=== PATIENT | male | born 1990 | race Caucasian/White ===

== ENCOUNTER 2019-03-04 16:59 | Emergency (ER) | payer MEDICAID, SELFPAY ==
[2019-03-04 17:01] VITALS: BP 162/95; PULSE 120; RESP 12; TEMP 36.8; O2SAT 95; BMI 28.1
[2019-03-04 17:07] VITALS: O2SAT 96
[2019-03-04 17:11] LABS: Bedside Glucose 183 mg/dL (70-110)
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
[2019-03-04] MEDS: Naloxone 2 MG/2 ML Syringe IV (17:21)
[2019-03-04] MEDS: 0.9% Normal Saline 1,000 ML 1000 ML IV (17:26)
[2019-03-04] MEDS: Ondansetron 4 MG/2 ML Vial IV (17:29)
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
[2019-03-04 17:31] LABS: Absolute Lymphocyte Count 3.75 X10^3/ul (0.83-4.51); Absolute Neutrophil Count 4.4 X10^3/uL (2.0-7.7); Basophil# 0.06 X10^3/uL; Basophil% 0.6 % (0-1); Eosinophil# 0.68 X10^3/uL; Eosinophils% 6.8 % (0-5); Hematocrit 41.8 % (40-54); Hemoglobin 13.8 g/dl (13.0-16.5); Lymphocyte # 3.75 X10^3/ul (4.0); Lymphocyte % 37.4 % (19-41); Mean Corpuscular Hgb 27.4 pg (27.0-32.0); Mean Corpuscular Volume 83.1 fL (80-94); Mean Platelet Vol. 9.2 fl (6.2-12.0); Monocyte# 1.05 X10^3/uL; Monocyte% 10.5 % (0-10); Neutrophil # 4.44 X10^3/uL (2.7-7.7); Neutrophil % 44.3 % (47-70); Platelet Count 327 K/mm3 (150-450); RBC Distribution Width CV 12.9 % (11.6-14.6); RBC Distribution Width SD 39.1 fl (35.1-43.9); Red Blood Count 5.03 M/mm3 (4.6-6.2)
--- NOTE | 2019-03-04 17:43 | ED.RN ---
AFTER NARCAN PT'S PUPILS ARE REACTIVE TO LIGHT BILAT AND 9MM.
[2019-03-04 17:45] LABS: POSITIVE COUNT NO; POSITIVE DIFFERENTIAL NO; POSITIVE MORPHOLOGY NO
[2019-03-04 17:52] LABS: Anion Gap 3 (5-15); BUN 13 mg/dL (7-18); BUN/Creat Ratio 10.6 RATIO (10-20); Calcium,Total 8.2 mg/dL (8.5-10.1); Chloride 107 mmol/L (98-107); Creatinine, Serum 1.23 mg/dL (0.70-1.30); EST Glomerular Filtration Rate 74 mL/min (>60); Est Glom Filt Rate - Afr Amer 89 mL/min (>60); Glucose 186 mg/dL (74-106); Potassium 3.4 mmol/L (3.5-5.1); Sodium Level 140 mmol/L (136-145)
[2019-03-04 18:00] VITALS: BP 140/77; PULSE 95; RESP 16; O2SAT 100
[2019-03-04 19:08] VITALS: BP 126/70; PULSE 100; RESP 14; O2SAT 98
[2019-03-04 19:51] VITALS: BP 125/67; PULSE 92; RESP 16; O2SAT 97
== END 2019-03-04 19:56 | disposition home or self-care (01) ==
PROVIDERS: Emergency Provider Emergency Medicine
DX: T40.601A Poisoning by unspecified narcotics, accidental (unintentional), initial encounter (principal); R41.82 Altered mental status, unspecified; Y92.9 Unspecified place or not applicable; F19.10 Other psychoactive substance abuse, uncomplicated; V89.2XXA Person injured in unspecified motor-vehicle accident, traffic, initial encounter; Y93.9 Activity, unspecified
CPT/HCPCS: 70450; 71045; 80048; 82962; 85025; 96361; 96374; 96375; 99285; J7030; A4216; J2405